=== PATIENT | male | born 1980 | race Caucasian/White ===

== ENCOUNTER 2023-04-12 08:25 | Emergency (ER) | payer OTHER, SELFPAY ==
[2023-04-12 08:33] VITALS: BP 119/79; PULSE 66; RESP 20; TEMP 36.6; O2SAT 98; BMI 26.5
--- NOTE | 2023-04-12 08:56 | XR_ITS ---
The [address] [address] Patient Name: JHONATHAN LEONARD MRN: [id number] date: 1980 Sex: M Assigned Patient Location: ER Current Patient Location: ER Accession/Order Number: [id number] Exam Date: 04/12/2023 09:03 Report Date: 04/12/2023 09:22 At the request of: TAY HAYWOOD Procedure: XR shoulder RT min 2V EXAM: XR shoulder RT min 2V HISTORY: pain COMPARISON: None. TECHNIQUE: 3 views FINDINGS: No acute fracture or dislocation. Mild degenerative changes of the acromioclavicular joint. Unremarkable soft tissues. XR/XR shoulder RT min 2V IMPRESSION: Mild degenerative changes as above. Electronically authenticated by: JONNY WEEMS Date: 04/12/2023 09:22
--- NOTE | 2023-04-12 08:57 | ED.UPPEXIN1 ---
HPI - Extremity Injury (Upper) General Chief Complaint: Extremity Injury, Upper Stated Complaint: R SHOULDER PAIN Time Seen by Provider: 04/12/23 08:43 Source: patient Mode of arrival: walk-in Limitations: no limitations History of Present Illness HPI narrative: patient presents to emergency room with acute on chronic right shoulder pain. He does not have a doctor in this area. He said he spent another emergency room today really haven't done much for him. He has no new or specific injury. He works as a telephone mechanic and has been yellow to work but now is getting compromising his ability to perform his work full-time. He does not have any old surgical history two shoulder. There is no tingling or numbness to the hand. The pain is in the deltoid and posterior deltoid area. He does not have any problems elevating his arm as noted below. Images certain angles and movements that cause him to have pain in this area. Does not have any other arthropathy. Is not having fever. Has not ever been seen by orthopedist for this. Has not had previous x-rays at the other institutions. They've advised anti-inflammatories. Related Data Home Medications Medication Instructions Recorded Confirmed No Known Home Medications 04/12/23 04/12/23 Allergies Allergy/AdvReac Type Severity Reaction Status Date / Time No Known Drug Allergies Allergy Verified 04/12/23 08:36 Exam Narrative Exam Narrative: I'll hydrate well-nourished appears in no discomfort while sitting at rest. His vital signs are stable. Problem focused examination as noted below Constitutional Vital Signs, click to edit/add: Last Vital Signs Temp 97.9 F 04/12/23 08:33 Pulse 66 04/12/23 08:33 Resp 20 04/12/23 08:33 BP 119/79 04/12/23 08:33 Pulse Ox 98 04/12/23 08:33 Extremity Common normals: normal to inspection, normal capillary refill and no joint enlargement Right upper extremity: shoulder joint Other: inspection of the right shoulder shows no redness swelling or evidence of trauma or injury. He has no tenderness over the distal clavicle or before meals joint. He can elevate the arm above shoulder height with no grimacing or discomfort. External rotation is mildly uncomfortable as his internal rotation. No muscle atrophy of his right forearm, he is right arm dominant. Does not have any discomfort in the neck or sternocleidomastoid area and neurovascular examination the distal extremity is normal. Course Vital Signs Vital signs: Vital Signs Temperature 97.9 F 04/12/23 08:33 Pulse Rate 66 04/12/23 08:33 Respiratory Rate 20 04/12/23 08:33 Blood Pressure 119/79 04/12/23 08:33 Pulse Oximetry 98 04/12/23 08:33 Temperature 97.9 F 04/12/23 08:33 Pulse Rate 66 04/12/23 08:33 Respiratory Rate 20 04/12/23 08:33 Blood Pressure 119/79 04/12/23 08:33 Pulse Oximetry 98 04/12/23 08:33 MDM - Extremity Injury (Upper) MDM Narrative Medical decision making narrative: x-rays do not show any degenerative changes or other bony abnormalities of the shoulder joint. At this chart juncture he is having a flareup of discomfort and no obvious evidence of rotator cuff care or neurovascular compromise. He does not have a primary care doctor so we will provide him with a list of local practitioners, in addition the family practice clinic and [facility] should be able to see him. I'll give him the name of orthopedic doctor that could follow-up with him as well. I give him a prescription for Toradol Discharge Plan Discharge Chief Complaint: Extremity Injury, Upper Clinical Impression: Muscle strain of right shoulder Patient Disposition: Home, Self-Care Time of Disposition Decision: 09:24 Prescriptions / Home Meds: No Action No Known Home Medications Instructions: Shoulder Pain (ED) Additional Instructions: Toradol/if patient requests light-duty work prescription we will provide that. 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
== END 2023-04-12 10:03 | disposition home or self-care (01) ==
PROVIDERS: Emergency Provider Emergency Medicine Emergency Medical Services
DX: S46.911A Strain of unspecified muscle, fascia and tendon at shoulder and upper arm level, right arm, initial encounter (principal); X58.XXXA Exposure to other specified factors, initial encounter
CPT/HCPCS: 73030; 99283